=== PATIENT | male | born 2000 | race Caucasian/White ===

== ENCOUNTER 2023-03-27 11:50 | Emergency (ER) | payer OTHER ==
[~2023-03-27] VITALS: Ht 175.3 cm; Wt 104.0 kg
[2023-03-27 11:58] VITALS: BP 108/69; PULSE 74; RESP 20; TEMP 98.3; O2SAT 99
== END 2023-03-27 14:40 | disposition home or self-care (01) ==
LOC: ER 11:50
DX: R07.89 Other chest pain (principal)
CPT/HCPCS: 71045; 99283